=== PATIENT | male | born 1975 | race Caucasian/White ===

== ENCOUNTER 2021-06-23 04:16 | Inpatient (IN) | payer OTHER ==
[~2021-06-23] VITALS: Ht 182.9 cm; Wt 106.2 kg
[2021-06-23 04:53] LABS: HEMOGLOBIN 13.2 gm/dl (14.0-17.5); RED BLOOD COUNT 4.8 M/UL (4.20-5.50); WHITE BLOOD COUNT 8.8 K/UL (4.5-11.0)
[2021-06-23 05:18] LABS: BUN/CREATININE RATIO 11 (0-10)
[2021-06-23] MEDS ORDERED: CYCLOBENZAPRINE10 MG PO (07:08)
[2021-06-23] MEDS ORDERED: MIRTAZAPINE15 MG PO (11:24)
[2021-06-23] MEDS ORDERED: IBUPROFEN400 MG PO (11:25)
[2021-06-23] MEDS ORDERED: ZANAFLEX 4 MG TA4 MG PO (11:25)
[2021-06-24 01:16] LABS: KPC-CARBAPENEM-RESISTANCE GENE Not Detected (Negative)
[2021-06-24 01:17] LABS: ACINETOBACTER BAUMANNII Not Detected (Negative); CANDIDA ALBICANS Not Detected (Negative); CANDIDA KRUSEI Not Detected (Negative); CANDIDA TROPICALIS Not Detected (Negative); ENTEROCOCCUS Not Detected (Negative); ESCHERICHIA COLI Not Detected (Negative); HAEMOPHILUS INFLUENZAE Not Detected (Negative); KLEBSIELLA OXYTOCA Not Detected (Negative); KLEBSIELLA PNEUMONIAE Not Detected (Negative); PROTEUS Not Detected (Negative); PSEUDOMONAS AERUGINOSA Not Detected (Negative); SERRATIA MARCESANS Not Detected (Negative); STREP AGALACTIAE (GROUP B) Not Detected (Negative); STREP PYOGENES (GROUP A) Not Detected (Negative); STREPTOCOCCUS Not Detected (Negative); vanA/B (VANCOMYCIN RESIST GENE Not Detected (Negative)
[2021-06-24 03:22] LABS: STAPHYLOCOCCUS DETECTED (Negative); STAPHYLOCOCCUS AUREUS DETECTED (Negative); mecA (METHICILLIN RESIST GENE DETECTED (Negative)
[2021-06-24 04:56] LABS: HEMOGLOBIN 13.3 gm/dl (14.0-17.5); RED BLOOD COUNT 4.89 M/UL (4.20-5.50); WHITE BLOOD COUNT 8.3 K/UL (4.5-11.0)
[2021-06-24 05:22] LABS: BUN/CREATININE RATIO 13 (0-10)
[2021-06-25 05:58] LABS: HEMOGLOBIN 14.3 gm/dl (14.0-17.5); RED BLOOD COUNT 5.29 M/UL (4.20-5.50)
[2021-06-25 06:30] LABS: BUN/CREATININE RATIO 16 (0-10)
[2021-06-26 04:01] LABS: HEMOGLOBIN 15.4 gm/dl (14.0-17.5); RED BLOOD COUNT 5.68 M/UL (4.20-5.50); WHITE BLOOD COUNT 7.2 K/UL (4.5-11.0)
[2021-06-26 04:19] LABS: BUN/CREATININE RATIO 15 (0-10)
[2021-06-27 06:24] LABS: HEMOGLOBIN 14.2 gm/dl (14.0-17.5); RED BLOOD COUNT 5.27 M/UL (4.20-5.50); WHITE BLOOD COUNT 5.8 K/UL (4.5-11.0)
[2021-06-27 07:05] LABS: BUN/CREATININE RATIO 19 (0-10)
--- NOTE | 2021-06-27 17:07 | NUR ---
PATIENT NEEDS NEW GOWN AND NEW ALLEVYN TO COCCYX, DEFERRING UNTIL RT COMES TO PROVIDE DEEP SUCTION. FAMILY WANTS TO KEEP HIM UPRIGHT. THEY ARE WORRIED THAT HE IS STRUGGLING AND WANTS HIM TO GO BACK ON HIS IV ANTIBIOTICS BECAUSE "THIS IS HOW HE WAS WHEN WE CAME IN, AND WE DON'T WANT TO TAKE HIM HOME THE SAME WAY HE CAME IN". I TOLD THEM I WILL RELAY THIS TO THE DOCTOR, AND THAT HE SEEMS TO BE HAVING MORE ISSUES AFTER HIS TUBE FEED. THEY REQUESTED THAT I CHECK HIS RESIDUAL. WILL CHECK AFTER SUCTION.
[2021-06-28 09:10] LABS: HEMOGLOBIN 14.9 gm/dl (14.0-17.5); RED BLOOD COUNT 5.44 M/UL (4.20-5.50); WHITE BLOOD COUNT 5.3 K/UL (4.5-11.0)
[2021-06-28] MEDS ORDERED: AMLODIPINE BESYL5 MG PO (13:22)
[2021-06-28] MEDS ORDERED: LISINOPRIL40 MG PO (13:22)
[2021-06-28] MEDS ORDERED: CUBICIN 500 MG500 MG INJ ×2 (13:22→13:25)
[2021-06-29] MEDS ORDERED: PERCOCET 5/325 T1 EA PO (11:31)
[2021-06-29] MEDS ORDERED: LISINOPRIL40 MG PO (11:31)
[2021-06-29] MEDS ORDERED: AMLODIPINE BESYL5 MG PO (11:31)
== END 2021-06-29 13:38 | DRG 539 ==
LOC: ER1 04:16 → CDU 08:43 → MED SURG 4 08:43
PROVIDERS: Emergency Medicine; Family Medicine; Physician Assistant; Physician Assistant Medical; ADMIT Internal Medicine
PROC: B24BZZ4 Ultrasonography of Heart with Aorta, Transesophageal (ICD-10-PCS; principal; 2021-06-23)
PROC: 8E0ZXY6 Isolation (ICD-10-PCS; 2021-06-23)
DX: M46.26 Osteomyelitis of vertebra, lumbar region (principal); U07.1 COVID-19; M84.48XA Pathological fracture, other site, initial encounter for fracture; R78.81 Bacteremia; M46.46 Discitis, unspecified, lumbar region; I10 Essential (primary) hypertension; B95.62 Methicillin resistant Staphylococcus aureus infection as the cause of diseases classified elsewhere; K92.89 Other specified diseases of the digestive system; F10.10 Alcohol abuse, uncomplicated; M48.061 Spinal stenosis, lumbar region without neurogenic claudication; K37 Unspecified appendicitis; I07.1 Rheumatic tricuspid insufficiency; F19.10 Other psychoactive substance abuse, uncomplicated; E87.6 Hypokalemia; I34.0 Nonrheumatic mitral (valve) insufficiency
CPT/HCPCS: ECHO; 36415; 70250; 71045; 72129; 72132; 73000; 73020; 80048; 80053; 80202; 82550; 82553; 83690; 83735; 85025; 85027; 85652; 86140; 87040; 87077; 87150; 87186; 93306; 96374; 96375; 99285; J0360; J0692; J0878; J1650; J2270; J2405; J3370; J7030; J7070; Q9967; U0002

== ENCOUNTER → 2021-08-12 | Outpatient (CLI) | payer OTHER ==
[~2021-08-12] MED LIST: AMLODIPINE BESYL5 MG PO; CUBICIN 500 MG500 MG INJ; CYCLOBENZAPRINE10 MG PO; IBUPROFEN400 MG PO; LISINOPRIL40 MG PO; MIRTAZAPINE15 MG PO; PERCOCET 5/325 T1 EA PO; ZANAFLEX 4 MG TA4 MG PO
== END ==
LOC: OPSV 12:00
DX: M46.26 Osteomyelitis of vertebra, lumbar region (principal); A49.02 Methicillin resistant Staphylococcus aureus infection, unspecified site; M46.46 Discitis, unspecified, lumbar region; I10 Essential (primary) hypertension
CPT/HCPCS: G0463

== ENCOUNTER → 2021-09-08 | Outpatient (CLI) | payer OTHER | LOC: CT 13:27 | DX: M86.9 Osteomyelitis, unspecified (principal); M19.011 Primary osteoarthritis, right shoulder | CPT/HCPCS: 72133; 73201; Q9967 ==